=== PATIENT | female | born 1960 | race African-American/Black ===

== ENCOUNTER → 2020-03-14 | Outpatient (CLI) | payer BC | END | disposition home or self-care (01) | LOC: LAB 11:08 | DX: Z20.828 Contact with and (suspected) exposure to other viral communicable diseases (principal); M79.605 Pain in left leg; M79.604 Pain in right leg | CPT/HCPCS: C9803; U0003 ==

== ENCOUNTER → 2020-03-16 | Outpatient (CLI) | payer BC | END | disposition home or self-care (01) | LOC: PVL 13:48 | DX: M79.604 Pain in right leg (principal); M79.605 Pain in left leg | CPT/HCPCS: 73590; 93923 ==